=== PATIENT | male | born 1990 | race Caucasian/White ===

== ENCOUNTER 2023-01-10 09:53 | Emergency (ER) | payer MEDICAID ==
[~2023-01-10] VITALS: Ht 182.9 cm; Wt 90.7 kg
[2023-01-10 10:00] VITALS: BP 159/97
[2023-01-10] MEDS ORDERED: NARCAN4 M1 (11:19)
[2023-01-10] MEDS ORDERED: ONDA4ODT MM (11:19)
[2023-01-10] MEDS ORDERED: SUBOXONE 8 MG-1 EACH SL (11:19)
== END 2023-01-10 11:29 | disposition home or self-care (01) ==
LOC: ER 09:53
DX: F11.20 Opioid dependence, uncomplicated (principal); Z88.8 Allergy status to other drugs, medicaments and biological substances
CPT/HCPCS: 99283